=== PATIENT | female | born 1970 | race Caucasian/White ===

== ENCOUNTER 2020-03-15 17:46 | Emergency (ER) | payer BC, OTHER ==
[~2020-03-15] VITALS: Ht 172.7 cm; Wt 74.8 kg
[2020-03-15] MEDS ORDERED: LORazepam 2MG/ML-1ML VIAL IV ONE (18:00)
[2020-03-15] MEDS ORDERED: methylPREDNISolone SOD SUCC 125 MG/2 ML VL IV ONE (19:30)
[2020-03-15] MEDS ORDERED: ASCORBIC ACID 500 MG TAB PO ONE (19:30)
[2020-03-15] MEDS ORDERED: ZINC SULFATE 220mg CAP or TAB PO ONE (19:30)
[2020-03-15] MEDS ORDERED: ENOXAPARIN SOD 100 MG/1 ML SYRINGE SC ONE (19:30)
[2020-03-15] MEDS ORDERED: AZITHROMYCIN 500MG/ 250ML 250 ML IV ONE (19:30)
[2020-03-15 19:33] LABS: Basophils # (auto) 0 10 ^3/uL (0-0.2); Basophils % (auto) 0.3 % (0.0-2.0); Eosinophils # (auto) 0.5 10 ^3/uL (0-0.8); Eosinophils % (auto) 3.4 % (0.0-7.0); Hematocrit 39.7 % (36.0-46.0); Hemoglobin 13.2 g/dL (12.2-16.2); Lymphocytes # (auto) 2.6 10 ^3/uL (0.4-5.4); Lymphocytes % (auto) 17.3 % (10.0-50.0); Mean Corpuscular Hemoglobin 31.7 pg (28.0-32.0); Mean Corpuscular Hgb Conc. 33.3 g/dL (32.0-36.0); Mean Corpuscular Volume 95.4 fL (80.0-100.0); Monocytes # (auto) 0.7 10 ^3/uL (0-1.3); Monocytes % (auto) 4.5 % (0.0-12.0); Neutrophils % (auto) 74.5 % (37.0-80.0); Platelet Count (auto) 260 10^3/uL (140-450); Red Blood Cells 4.16 10^6/uL (4.0-5.20); Red Cell Distribution Width 12.5 % (11.8-14.3); White Blood Cell 14.8 10^3/uL (4.4-10.8)
[2020-03-15 19:54] LABS: Calcium 8.7 mg/dL (8.5-10.1); Chloride 107 mmol/L (98-107); Potassium 3.5 mmol/L (3.5-5.1); Sodium 139 mmol/L (136-145)
[2020-03-15 19:58] LABS: Alanine Aminotransferase 27 U/L (13-56); Albumin 3.2 g/dL (3.4-5.0); Anion Gap 6 (5-15); BUN/Creatinine Ratio 13.3; Blood Urea Nitrogen 10 mg/dL (7-18); Carbon Dioxide 26 mmol/L (21-32); GFR African American 106 mL/min; GFR Non-African American 88 mL/min; Glucose 90 mg/dL (74-106)
[2020-03-15 20:08] LABS: Alkaline Phosphatase 81 U/L (45-117); Aspartate Aminotransferase 20 U/L (15-37); Bilirubin, Total 0.3 mg/dL (0.2-1.0); Total Protein 6.8 g/dL (6.4-8.2)
[2020-03-15 20:20] LABS: CRP High Sensitivity 0.61 mg/dL (< 0.3)
[2020-03-15 20:40] VITALS: BP 113/58
== END 2020-03-15 22:05 | disposition home or self-care (01) ==
LOC: EDBD 17:46 → EDUNIT# 17:46 → ER 17:46
DX: R07.89 Other chest pain (principal); R06.02 Shortness of breath; Z20.828 Contact with and (suspected) exposure to other viral communicable diseases
CPT/HCPCS: 36415; 71045; 80053; 82728; 83605; 83615; 84484; 85025; 85379; 86141; 87040; 87426; 93005; 96365; 96372; 96375; 99285; J0456; J1650; J2060; J2930

== ENCOUNTER 2023-03-20 16:31 | Emergency (ER) | payer OTHER ==
[~2023-03-20] VITALS: Ht 180.3 cm; Wt 75.1 kg
[2023-03-20 16:35] VITALS: BP 112/56; PULSE 97; RESP 18; O2SAT 98
[2023-03-20 17:07] LABS: Urine Bacteria FEW /hpf (None Seen); Urine Blood Negative /uL (Negative); Urine Clarity Clear (Clear); Urine Color Colorless (Yellow); Urine Protein, UAD Negative (Negative); Urine Specific Gravity 1.003 (1.001-1.035); Urine Urobilinogen Normal (Negative); Urine WBC 3 /hpf (0 - 5); Urine pH 6.5 (5.0-8.0)
[2023-03-20 17:23] LABS: Basophils # (auto) 0 10 ^3/uL (0-0.2); Basophils % (auto) 0.1 % (0.0-2.0); Eosinophils # (auto) 0 10 ^3/uL (0-0.8); Hematocrit 39.5 % (36.0-46.0); Mean Corpuscular Hemoglobin 30.3 pg (28.0-32.0); Mean Corpuscular Hgb Conc. 32.9 g/dL (32.0-36.0); Mean Corpuscular Volume 91.9 fL (80.0-100.0); Monocytes % (auto) 4.8 % (0.0-12.0); Neutrophils # (auto) 17.4 10 ^3/uL (1.6-8.6); Neutrophils % (auto) 81.1 % (37.0-80.0); Red Cell Distribution Width 12.5 % (11.8-14.3); White Blood Cell 21.5 10^3/uL (4.4-10.8)
[2023-03-20 17:51] LABS: Alanine Aminotransferase 60 U/L (7-40); Albumin 4.5 g/dL (3.2-4.8); Alkaline Phosphatase 101 U/L (46-116); Anion Gap 4.1 (5-15); Aspartate Aminotransferase 49 U/L (13-40); BUN/Creatinine Ratio 11.1 (10.0-20.0); Bilirubin, Total 0.3 mg/dL (0.2-1.0); Blood Urea Nitrogen 9 mg/dL (9-23); Calcium 9.7 mg/dL (8.5-10.1); Carbon Dioxide 27.9 mmol/L (20-30); Chloride 107 mmol/L (98-107); Glucose 103 mg/dL (74-106); Potassium 3.9 mmol/L (3.5-5.1); Sodium 139 mmol/L (136-145); Total Protein 7.5 g/dL (5.7-8.2)
[2023-03-20 18:13] LABS: CRP High Sensitivity 0.48 mg/dL (<1.0)
[2023-03-20 19:05] LABS: Erythrocyte Sedimentation Rate 7 mm/hr (0-20)
== END 2023-03-20 19:19 | disposition left against medical advice (07) ==
LOC: ER 16:31
DX: R10.11 Right upper quadrant pain (principal); R10.31 Right lower quadrant pain; R50.9 Fever, unspecified; J45.909 Unspecified asthma, uncomplicated; F17.210 Nicotine dependence, cigarettes, uncomplicated; Z90.49 Acquired absence of other specified parts of digestive tract; Z53.29 Procedure and treatment not carried out because of patient's decision for other reasons; Z88.0 Allergy status to penicillin; Z88.1 Allergy status to other antibiotic agents; Z88.2 Allergy status to sulfonamides
CPT/HCPCS: 36415; 80053; 81001; 82150; 83690; 85025; 85652; 86141